=== PATIENT | male | born 1975 | race Caucasian/White ===

== ENCOUNTER → 2021-12-27 | Outpatient (CLI) | payer OTHER ==
[~2021-12-27] MED LIST: GADOTERATE MEGLUMINE 10 MMOL/20 ML VIAL IVP ONE
== END | disposition home or self-care (01) ==
LOC: RADMN 08:37
PROVIDERS: ATTEND Physician Assistant Surgical
DX: M54.18 Radiculopathy, sacral and sacrococcygeal region (principal); Z98.890 Other specified postprocedural states
CPT/HCPCS: 72149; A9575